=== PATIENT | male | born 1980 | race Two or more races ===

== ENCOUNTER 2018-06-30 15:22 | Inpatient (IN) | payer OTHER ==
[2018-06-30 18:42] VITALS: BMI 29.7
--- NOTE | 2018-06-30 21:05 | HP ---
COWS - Scale Resting Pulse: 4= [place] > 121 Sweatin=Flushed/Facial Moisture Restless Observation: 1= Difficult to Sit Still Pupil Size: 1= Pupils >than Normal Bone or Joint Aches: 2= Severe Diffuse Aches Runny Nose/ Eye Tearin= Runny Nose/Eyes GI Upset > 30mins: 2= Nausea/Diarrhea Tremor Observation: 2= Slight Tremor Visible Yawning Observation: 0= None Anxiety or Irritability: 1=Feels Anxious/Irritable Goose Flesh Skin: 0=Smooth Skin COWS Score: 17 CIWA Score - CIWA Score Nausea/Vomitin Muscle Tremors: 3 Anxiety: 2 Agitation: 2 Paroxysmal Sweats: 3 Orientation: 0-Oriented Tacttile Disturbances: 2-Mild Itch/Numbness/Burn Auditory Disturbances: 2-Mild Harshness/Frighten Visual Disturbances: 2-Mild Sensitivity Headache: 2-Mild CIWA-Ar Total Score: 20 Admission ROS BHS - HPI Chief Complaint: DEPENDENT ON HEROIN, ETOH AND COCAINE Allergies/Adverse Reactions: Allergies Allergy/AdvReac Type Severity Reaction Status Date / Time No Known Allergies Allergy Verified 06/30/18 19:16 History of Present Illness: THE PT. IS REQUESTING ADMISSION TO THE DETOX UNIT AND CAME FOR H AND PE Exam Limitations: No Limitations - Ebola screening Have you traveled outside of the country in the last 21 days: No (N) Have you had contact with anyone from an Ebola affected area: No Have you been sick,other than usual withdrawal symptoms: No Do you have a fever: No - Review of Systems Constitutional: See HPI, Malaise, Weakness EENT: reports: See HPI Respiratory: reports: See HPI Cardiac: reports: See HPI, Syncope GI: reports: See HPI, Diarrhea, Nausea, Poor Appetite, Vomiting, Abdominal cramping : reports: See HPI Musculoskeletal: reports: See HPI, Muscle Pain, Muscle Weakness Integumentary: reports: See HPI, Sweating Neuro: reports: See HPI, Headache, Tremors, Weakness Endocrine: reports: See HPI Hematology: reports: See HPI Psychiatric: reports: Judgement Intact, Orientated x3, Anxious, Depressed Patient History - Patient Medical History Hx Asthma: No Hx Cardiac Disorders: No Hx Diabetes: No Hx Gastrointestinal Disorders: No Hx Sexually Transmitted Disorders: No Hx Renal Disease (ESRD): No Hx Human Immunodeficiency Virus (HIV): No Hx Hepatitis C: No Hx Depression: Yes (ANXIETY) - Patient Surgical History Past Surgical History: No - PPD History Previous Implant?: No - Smoking Cessation Smoking history: Current every day smoker Have you smoked in the past 12 months: Yes Aproximately how many cigarettes per day: 20 Hx Chewing Tobacco Use: No Initiated information on smoking cessation: Yes 'Breaking Loose' booklet given: 06/30/18 - Substance & Tx. History Hx Alcohol Use: Yes Hx Substance Use: Yes Substance Use Type: Alcohol, Cocaine, Heroin Hx Substance Use Treatment: Yes - Substances Abused Alcohol Route: Oral Frequency: Daily Amount used: 1 PINT Age of first use: 17 Date of Last Use: 06/30/18 Cocaine Route: Smoking Frequency: Daily Amount used: 10 BAGS Age of first use: 21 Date of Last Use: 06/30/18 Heroin Route: Injection Frequency: Daily Amount used: 10 BAGS Age of first use: 21 Date of Last Use: 06/30/18 Family Disease History - Family Disease History Family History: Denies Admission Physical Exam [facility] - Vital Signs Vital Signs: Vital Signs - 24 hr 06/30/18 18:39 Temperature 98.9 F Pulse Rate 129 H Respiratory 20 Rate Blood Pressure 132/77 - Physical General Appearance: Yes: No Apparent Distress, Nourished, Appropriately Dressed , Tremorous, Sweating, Anxious HEENTM: Yes: Hearing grossly Normal, Normocephalic, Normal Voice, MATY Respiratory: Yes: Chest Non-Tender, Lungs Clear, Normal Breath Sounds, No Respiratory Distress, No Accessory Muscle Use Neck: Yes: No masses,lesions,Nodules, Supple, Trachea in good position Breast: Yes: Breast Exam Deferred, Axillae without masses Cardiology: Yes: Regular Rhythm, S1, S2, Tachycardia Abdominal: Yes: Normal Bowel Sounds, Non Tender, Soft, Protuberent Back: Yes: Normal Inspection Musculoskeletal: Yes: full range of Motion, Gait Steady, Pelvis Stable, Muscle Pain, Muscle weakness Extremities: Yes: Normal Capillary Refill, Normal Range of Motion, Non-Tender, Tremors Neurological: Yes: 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 intact, Fully Oriented, Alert, Motor Strength 5/5, Normal Response, Depressed Affect Integumentary: Yes: Warm, Moist, Track Rodriguez Lymphatic: Yes: Within Normal Limits - Diagnostic (1) Heroin dependence Current Visit: Yes Status: Chronic (2) EtOH dependence Current Visit: Yes Status: Chronic Qualifiers: Substance use status: uncomplicated Qualified Code(s): F10.20 - Alcohol dependence, uncomplicated (3) Cocaine dependence Current Visit: Yes Status: Chronic Qualifiers: Substance use status: uncomplicated Qualified Code(s): F14.20 - Cocaine dependence, uncomplicated (4) Anxiety and depression Current Visit: Yes Status: Chronic (5) Nicotine dependence Current Visit: Yes Status: Chronic Qualifiers: Nicotine product type: cigarettes Cleared for Admission [facility] - Detox or Rehab [facility] Level of Care: Medically Managed Detox Regimen/Protocol: Methadone/Valium [facility] Breath Alcohol Content Breath Alcohol Content: 0 Urine Drug Screen - Results Drug Screen Negative: No Urine Drug Screen Results: ZION-Cocaine, OPI-Opiates, BZO-Benzodiazepines, MTD- Methadone, FEN-Fentanyl
[2018-06-30] MEDS ORDERED: MAGNESIUM HYDROX 2400MG/30ML ORAL SUSPENSION 30 ML CUP PO PRN (21:11)
[2018-06-30] MEDS ORDERED: ACETAMINOPHEN 325 MG TABLET (FP) PO PRN (21:11)
[2018-06-30] MEDS ORDERED: diazePAM 5 MG TABLET PO ONE (21:11)
[2018-06-30] MEDS ORDERED: LOPERAMIDE HCL 2 MG CAPSULE PO PRN (21:11)
[2018-06-30] MEDS ORDERED: MAGNESIUM CITRATE 300 ML BOTTLE PO PRN (21:11)
[2018-06-30] MEDS ORDERED: MENTHOL/PHENOL 1 EACH UD MM PRN (21:11)
[2018-06-30] MEDS ORDERED: IBUPROFEN 400 MG TABLET (FP) PO PRN (21:11)
[2018-06-30] MEDS ORDERED: P-EPHED 60MG/TRIPROLIDI 2.5MG TABLET PO PRN (21:11)
[2018-06-30] MEDS ORDERED: MAG HYDROX/AL HYDROX/SIMETH 30 ML UNIT-DOSE CUP PO PRN (21:11)
[2018-06-30] MEDS ORDERED: guaiFENesin/D-METHORPHAN HB 10 ML UNIT-DOSE CUPS PO PRN (21:11)
[2018-06-30] MEDS ORDERED: METHADONE HCL 10 MG TABLET (FOR DETOX USE ONLY) PO ONE ×2 (21:45→23:00)
[2018-06-30] MEDS ORDERED: MELATONIN 5 MG TABLETS PO PRN (22:00)
[2018-06-30] MEDS: THIAMINE HCL 100 MG TABLET (FP) PO SCH (22:11)
[2018-06-30] MEDS: diazePAM 5 MG TABLET PO SCH (22:12)
[2018-06-30] MEDS: NICOTINE POLACRILEX 4 MG GUM BC PRN (22:26)
[2018-07-01 02:04] LABS: URINE APPEARANCE TURBID; URINE BILIRUBIN NEGATIVE (<2.0 mg/dL); URINE COLOR YELLOW; URINE GLUCOSE (UA) NEGATIVE (NEGATIVE); URINE KETONE NEGATIVE (NEGATIVE); URINE LEUK ESTERASE NEGATIVE (NEGATIVE); URINE NITRITE NEGATIVE (NEGATIVE); URINE PROTEIN NEGATIVE (NEGATIVE); URINE UROBILINOGEN NEGATIVE mg/dL (0.2-1.0)
[2018-07-01] MEDS: diazePAM 5 MG TABLET PO SCH ×3 (06:02→22:11)
[2018-07-01] MEDS ORDERED: METHADONE HCL 10 MG TABLET (FOR DETOX USE ONLY) PO SCH (10:00)
[2018-07-01] MEDS: NICOTINE POLACRILEX 4 MG GUM BC PRN ×4 (10:11→20:12)
[2018-07-01] MEDS: NICOTINE 21 MG/24 HOURS TOPICAL PATCH TD SCH (10:11)
[2018-07-01] MEDS: PRENATAL VITAMINS W/ FOLIC ACID TABLET (FP) PO SCH (10:11)
[2018-07-01 10:39] LABS: HEMATOCRIT 39.7 % (35.4-49); HEMOGLOBIN 13.1 GM/dL (11.7-16.9); MCH 26.2 pg (25.7-33.7); MEAN CELL VOLUME 79.2 fl (80-96); MEAN PLT VOLUME 9.5 fl (7.5-11.1); PLATELET COUNT 297 K/MM3 (134-434); RBC 5.02 M/mm3 (4.00-5.60); WHITE BLOOD COUNT 9.3 K/mm3 (4.0-10.0)
[2018-07-01 10:52] LABS: CHLORIDE 106 mmol/L (98-107); POTASSIUM 3.8 mmol/L (3.5-5.1); SODIUM 144 mmol/L (136-145)
[2018-07-01 10:56] LABS: ALBUMIN 3.6 g/dl (3.4-5.0); ALK PHOS 109 U/L (45-117); ANION GAP 11 MMOL/L (8-16); BILIRUBIN,TOTAL 0.6 mg/dL (0.2-1.0); BLOOD UREA NITROGEN 19 mg/dL (7-18); CALCIUM 8.9 mg/dL (8.5-10.1); CO2 27 mmol/L (21-32); GLUCOSE,RANDOM 95 mg/dL (74-106); SGOT/AST 46 U/L (15-37); SGPT/ALT 41 U/L (13-61)
--- NOTE | 2018-07-01 11:48 | CONSULT ---
[facility] Psychiatric Consult - Data Date of interview: 07/01/18 Admission source: Self-referred Identifying data: 38 y/o male single, unemployed, homeless, father of 2 and no source of income Substance Abuse History: This is ihis first detox in patient adnission due to heroin, EYOH and cocaine abuse. He has been using drugs since age 22 on and off. He feels stressed tired and fatigued using 10 bags of cocaine and shooting heroin daily. patient was marginally cooperative he appears sedated. Please refer to addiction counselor summay for more detailed drug history Medical History: Denies past acute medical or surgical illnesses Psychiatric History: Denies psychiatric history. Feels depressed over his current situation, denies psychosis, denies mood swings, denies anxiety, denies suicidal or homicidal ideation Physical/Sexual Abuse/Trauma History: unable to ascertain, patient was uncooperative Mental Status Exam - Mental Status Exam Cognitive Function: Fair Patient Appearance: Unkempt Mood: Hostile Affect: Constricted Patient Behavior: Guarded Speech Pattern: Slurred Voice Loudness: Mildly Loud Thought Process: Circumstantial Thought Disorder: Being Controlled Hallucinations: Denies Suicidal Ideation: Denies Homicidal Ideation: Denies Insight/Judgement: Poor Sleep: Poorly Appetite: Fair Muscle strength/Tone: Normal Gait/Station: Normal Psychiatric Findings - Problem List ([place] 1, 2,3) (1) Cocaine dependence Current Visit: Yes Status: Chronic Qualifiers: Substance use status: uncomplicated Qualified Code(s): F14.20 - Cocaine dependence, uncomplicated (2) EtOH dependence Current Visit: Yes Status: Chronic Qualifiers: Substance use status: uncomplicated Qualified Code(s): F10.20 - Alcohol dependence, uncomplicated (3) Heroin dependence Current Visit: Yes Status: Chronic (4) Nicotine dependence Current Visit: Yes Status: Chronic Qualifiers: Nicotine product type: cigarettes - Initial Treatment Plan Initial Treatment Plan: Continue detocx treatment. Observation. Monitor response
[2018-07-01] MEDS: diazePAM 5 MG TABLET PO PRN (12:12)
--- NOTE | 2018-07-01 16:33 | PN ---
S CIWA - CIWA Score Nausea/Vomitin-Mild Nausea/No Vomiting Muscle Tremors: 4-Moderate,w/Arms Extend Anxiety: 3 Agitation: 3 Paroxysmal Sweats: 4-Forehead w/Sweat Beads Orientation: 0-Oriented Tacttile Disturbances: 1-Very Mild Itch/Numbness Auditory Disturbances: 0-None Visual Disturbances: 0-None Headache: 0-None Present CIWA-Ar Total Score: 16 BHS COWS - Scale Resting Pulse: 0= [place] 80 or Below Sweatin= Chills/Flushing Restless Observation: 1= Difficult to Sit Still Pupil Size: 0= Normal to Room Light Bone or Joint Aches: 1= Mild Discomfort Runny Nose/ Eye Tearin= Nasal Congestion GI Upset > 30mins: 2= Nausea/Diarrhea Tremor Observation of Outstretched Hands: 2= Slight Tremor Visible Yawning Observation: 2= >3x During Session Anxiety or Irritability: 2=Irritable/Anxious Goose Flesh Skin: 0=Smooth Skin COWS Score: 12 S Progress Note (SOAP) Subjective: body ache joints pain muscle cramping sweat tremor Objective: 07/01/18 16:33 Vital Signs Temperature 98.2 F 07/01/18 13:54 Pulse Rate 87 07/01/18 13:54 Respiratory Rate 18 07/01/18 13:54 Blood Pressure 126/64 07/01/18 13:54 O2 Sat by Pulse Oximetry (%) Laboratory Last Values WBC 9.3 K/mm3 (4.0-10.0) 07/01/18 07:25 RBC 5.02 M/mm3 (4.00-5.60) 07/01/18 07:25 Hgb 13.1 GM/dL (11.7-16.9) 07/01/18 07:25 Hct 39.7 % (35.4-49) 07/01/18 07:25 MCV 79.2 fl (80-96) L 07/01/18 07:25 MCH 26.2 pg (25.7-33.7) 07/01/18 07:25 MCHC 33.0 g/dl (32.0-35.9) 07/01/18 07:25 RDW 14.0 % (11.9-15.9) 07/01/18 07:25 Plt Count 297 K/MM3 (134-434) 07/01/18 07:25 MPV 9.5 fl (7.5-11.1) 07/01/18 07:25 Sodium 144 mmol/L (136-145) 07/01/18 07:25 Potassium 3.8 mmol/L (3.5-5.1) 07/01/18 07:25 Chloride 106 mmol/L (98-107) 07/01/18 07:25 Carbon Dioxide 27 mmol/L (21-32) 07/01/18 07:25 Anion Gap 11 MMOL/L (8-16) 07/01/18 07:25 BUN 19 mg/dL (7-18) H 07/01/18 07:25 Creatinine 1.0 mg/dL (0.55-1.3) 07/01/18 07:25 Creat Clearance w eGFR > 60 (>60) 07/01/18 07:25 Random Glucose 95 mg/dL (74-106) 07/01/18 07:25 Calcium 8.9 mg/dL (8.5-10.1) 07/01/18 07:25 Total Bilirubin 0.6 mg/dL (0.2-1.0) 07/01/18 07:25 AST 46 U/L (15-37) H 07/01/18 07:25 ALT 41 U/L (13-61) 07/01/18 07:25 Alkaline Phosphatase 109 U/L (45-117) 07/01/18 07:25 Total Protein 7.0 g/dl (6.4-8.2) 07/01/18 07:25 Albumin 3.6 g/dl (3.4-5.0) 07/01/18 07:25 Urine Color Yellow 06/30/18 22:06 Urine Appearance Turbid 06/30/18 22:06 Urine pH 5.0 (5.0-8.0) 06/30/18 22:06 Ur Specific [place] 1.030 (1.001-1.035) 06/30/18 22:06 Urine Protein Negative (NEGATIVE) 06/30/18 22:06 Urine Glucose (UA) Negative (NEGATIVE) 06/30/18 22:06 Urine Ketones Negative (NEGATIVE) 06/30/18 22:06 Urine Blood Negative (NEGATIVE) 06/30/18 22:06 Urine Nitrite Negative (NEGATIVE) 06/30/18 22:06 Urine Bilirubin Negative (<2.0 mg/dL) 06/30/18 22:06 Urine Urobilinogen Negative mg/dL (0.2-1.0) 06/30/18 22:06 Ur Leukocyte Esterase Negative (NEGATIVE) 06/30/18 22:06 RPR Titer Nonreactive (NONREACTIVE) 07/01/18 07:25 HIV 1&2 Antibody Screen Negative 07/01/18 07:25 HIV P24 Antigen Negative 07/01/18 07:25 lab noted Assessment: 07/01/18 16:33 withdrawal sx Plan: continue detox
[2018-07-01] MEDS: THIAMINE HCL 100 MG TABLET (FP) PO SCH (22:11)
--- NOTE | 2018-07-01 22:28 | EKG ---
Test Reason : Blood Pressure : / mmHG Vent. Rate : 082 BPM Atrial Rate : 082 BPM P-R Int : 140 ms QRS Dur : 080 ms QT Int : 408 ms P-R-T Axes : 040 034 041 degrees QTc Int : 476 ms NORMAL SINUS RHYTHM NORMAL ECG NO PREVIOUS ECGS AVAILABLE Confirmed by FLORINA CEBALLOS MD ([id number]) on 07/01/2018 10:28:20 PM Referred By: Confirmed By:FLORINA CEBALLOS MD
[2018-07-02] MEDS: PRENATAL VITAMINS W/ FOLIC ACID TABLET (FP) PO SCH (10:26)
[2018-07-02] MEDS: NICOTINE 21 MG/24 HOURS TOPICAL PATCH TD SCH (10:26)
[2018-07-02] MEDS: METHADONE HCL 5 MG TABLET (FOR DETOX USE ONLY) PO SCH (10:26)
[2018-07-02] MEDS: NICOTINE POLACRILEX 4 MG GUM BC PRN ×5 (10:27→22:17)
[2018-07-02] MEDS: diazePAM 5 MG TABLET PO SCH ×2 (10:29→22:15)
[2018-07-02] MEDS: diazePAM 5 MG TABLET PO PRN (12:16)
--- NOTE | 2018-07-02 17:19 | PN ---
[facility] CIWA - CIWA Score Nausea/Vomitin-Mild Nausea/No Vomiting Muscle Tremors: 4-Moderate,w/Arms Extend Anxiety: 4-Mod. Anxious/Guarded Agitation: 2 Paroxysmal Sweats: 1-Minimal Palms Moist Orientation: 0-Oriented Tacttile Disturbances: 0-None Auditory Disturbances: 0-None Visual Disturbances: 0-None Headache: 0-None Present CIWA-Ar Total Score: 12 BHS COWS - Scale Resting Pulse: 0= [place] 80 or Below Sweatin= Chills/Flushing Restless Observation: 1= Difficult to Sit Still Pupil Size: 0= Normal to Room Light Bone or Joint Aches: 2= Severe Diffuse Aches Runny Nose/ Eye Tearin= Nasal Congestion GI Upset > 30mins: 2= Nausea/Diarrhea Tremor Observation of Outstretched Hands: 2= Slight Tremor Visible Yawning Observation: 1= 1-2x During Session Anxiety or Irritability: 2=Irritable/Anxious Goose Flesh Skin: 0=Smooth Skin COWS Score: 12 S Progress Note (SOAP) Subjective: body ache muscle cramp sweat tremor trouble sleep at night Objective: 07/02/18 17:19 Vital Signs Temperature 98.4 F 07/02/18 13:07 Pulse Rate 82 07/02/18 13:07 Respiratory Rate 20 07/02/18 13:07 Blood Pressure 129/89 07/02/18 13:07 O2 Sat by Pulse Oximetry (%) Laboratory Last Values WBC 9.3 K/mm3 (4.0-10.0) 07/01/18 07:25 RBC 5.02 M/mm3 (4.00-5.60) 07/01/18 07:25 Hgb 13.1 GM/dL (11.7-16.9) 07/01/18 07:25 Hct 39.7 % (35.4-49) 07/01/18 07:25 MCV 79.2 fl (80-96) L 07/01/18 07:25 MCH 26.2 pg (25.7-33.7) 07/01/18 07:25 MCHC 33.0 g/dl (32.0-35.9) 07/01/18 07:25 RDW 14.0 % (11.9-15.9) 07/01/18 07:25 Plt Count 297 K/MM3 (134-434) 07/01/18 07:25 MPV 9.5 fl (7.5-11.1) 07/01/18 07:25 Sodium 144 mmol/L (136-145) 07/01/18 07:25 Potassium 3.8 mmol/L (3.5-5.1) 07/01/18 07:25 Chloride 106 mmol/L (98-107) 07/01/18 07:25 Carbon Dioxide 27 mmol/L (21-32) 07/01/18 07:25 Anion Gap 11 MMOL/L (8-16) 07/01/18 07:25 BUN 19 mg/dL (7-18) H 07/01/18 07:25 Creatinine 1.0 mg/dL (0.55-1.3) 07/01/18 07:25 Creat Clearance w eGFR > 60 (>60) 07/01/18 07:25 Random Glucose 95 mg/dL (74-106) 07/01/18 07:25 Calcium 8.9 mg/dL (8.5-10.1) 07/01/18 07:25 Total Bilirubin 0.6 mg/dL (0.2-1.0) 07/01/18 07:25 AST 46 U/L (15-37) H 07/01/18 07:25 ALT 41 U/L (13-61) 07/01/18 07:25 Alkaline Phosphatase 109 U/L (45-117) 07/01/18 07:25 Total Protein 7.0 g/dl (6.4-8.2) 07/01/18 07:25 Albumin 3.6 g/dl (3.4-5.0) 07/01/18 07:25 Urine Color Yellow 06/30/18 22:06 Urine Appearance Turbid 06/30/18 22:06 Urine pH 5.0 (5.0-8.0) 06/30/18 22:06 Ur Specific [place] 1.030 (1.001-1.035) 06/30/18 22:06 Urine Protein Negative (NEGATIVE) 06/30/18 22:06 Urine Glucose (UA) Negative (NEGATIVE) 06/30/18 22:06 Urine Ketones Negative (NEGATIVE) 06/30/18 22:06 Urine Blood Negative (NEGATIVE) 09/15/18 22:06 Urine Nitrite Negative (NEGATIVE) 06/30/18 22:06 Urine Bilirubin Negative (<2.0 mg/dL) 06/30/18 22:06 Urine Urobilinogen Negative mg/dL (0.2-1.0) 06/30/18 22:06 Ur Leukocyte Esterase Negative (NEGATIVE) 06/30/18 22:06 RPR Titer Nonreactive (NONREACTIVE) 07/01/18 07:25 HIV 1&2 Antibody Screen Negative 07/01/18 07:25 HIV P24 Antigen Negative 07/01/18 07:25 lab noted Assessment: 07/02/18 17:20 withdrawal sx Plan: continue detox
[2018-07-02] MEDS: THIAMINE HCL 100 MG TABLET (FP) PO SCH (22:15)
[2018-07-03] MEDS: NICOTINE POLACRILEX 4 MG GUM BC PRN ×5 (10:00→22:13)
[2018-07-03] MEDS: diazePAM 5 MG TABLET PO SCH ×2 (11:01→22:13)
[2018-07-03] MEDS: METHADONE HCL 5 MG TABLET (FOR DETOX USE ONLY) PO SCH (11:01)
[2018-07-03] MEDS: PRENATAL VITAMINS W/ FOLIC ACID TABLET (FP) PO SCH ×2 (11:01→11:13)
[2018-07-03] MEDS: NICOTINE 21 MG/24 HOURS TOPICAL PATCH TD SCH (11:12)
--- NOTE | 2018-07-03 16:22 | PN ---
BHS Progress Note (SOAP) Subjective: joint pain anxiety tremor body aches restlessness sweating Objective: 07/03/18 16:21 Vital Signs Temperature 97.3 F L 07/03/18 13:57 Pulse Rate 85 07/03/18 13:57 Respiratory Rate 18 07/03/18 13:57 Blood Pressure 117/82 07/03/18 13:57 O2 Sat by Pulse Oximetry (%) Laboratory Last Values WBC 9.3 K/mm3 (4.0-10.0) 07/01/18 07:25 RBC 5.02 M/mm3 (4.00-5.60) 07/01/18 07:25 Hgb 13.1 GM/dL (11.7-16.9) 07/01/18 07:25 Hct 39.7 % (35.4-49) 07/01/18 07:25 MCV 79.2 fl (80-96) L 07/01/18 07:25 MCH 26.2 pg (25.7-33.7) 07/01/18 07:25 MCHC 33.0 g/dl (32.0-35.9) 07/01/18 07:25 RDW 14.0 % (11.9-15.9) 07/01/18 07:25 Plt Count 297 K/MM3 (134-434) 07/01/18 07:25 MPV 9.5 fl (7.5-11.1) 07/01/18 07:25 Sodium 144 mmol/L (136-145) 07/01/18 07:25 Potassium 3.8 mmol/L (3.5-5.1) 07/01/18 07:25 Chloride 106 mmol/L (98-107) 07/01/18 07:25 Carbon Dioxide 27 mmol/L (21-32) 07/01/18 07:25 Anion Gap 11 MMOL/L (8-16) 07/01/18 07:25 BUN 19 mg/dL (7-18) H 07/01/18 07:25 Creatinine 1.0 mg/dL (0.55-1.3) 07/01/18 07:25 Creat Clearance w eGFR > 60 (>60) 07/01/18 07:25 Random Glucose 95 mg/dL (74-106) 07/01/18 07:25 Calcium 8.9 mg/dL (8.5-10.1) 07/01/18 07:25 Total Bilirubin 0.6 mg/dL (0.2-1.0) 07/01/18 07:25 AST 46 U/L (15-37) H 07/01/18 07:25 ALT 41 U/L (13-61) 07/01/18 07:25 Alkaline Phosphatase 109 U/L (45-117) 07/01/18 07:25 Total Protein 7.0 g/dl (6.4-8.2) 07/01/18 07:25 Albumin 3.6 g/dl (3.4-5.0) 07/01/18 07:25 Urine Color Yellow 06/30/18 22:06 Urine Appearance Turbid 06/30/18 22:06 Urine pH 5.0 (5.0-8.0) 06/30/18 22:06 Ur Specific [place] 1.030 (1.001-1.035) 06/30/18 22:06 Urine Protein Negative (NEGATIVE) 06/30/18 22:06 Urine Glucose (UA) Negative (NEGATIVE) 06/30/18 22:06 Urine Ketones Negative (NEGATIVE) 06/30/18 22:06 Urine Blood Negative (NEGATIVE) 06/30/18 22:06 Urine Nitrite Negative (NEGATIVE) 06/30/18 22:06 Urine Bilirubin Negative (<2.0 mg/dL) 06/30/18 22:06 Urine Urobilinogen Negative mg/dL (0.2-1.0) 06/30/18 22:06 Ur Leukocyte Esterase Negative (NEGATIVE) 06/30/18 22:06 RPR Titer Nonreactive (NONREACTIVE) 07/01/18 07:25 HIV 1&2 Antibody Screen Negative 07/01/18 07:25 HIV P24 Antigen Negative 07/01/18 07:25 lab noted Assessment: 07/03/18 16:22 withdrawal sx Plan: continue detox
[2018-07-03] MEDS: THIAMINE HCL 100 MG TABLET (FP) PO SCH (22:13)
[2018-07-04] MEDS: NICOTINE POLACRILEX 4 MG GUM BC PRN ×7 (00:47→23:03)
[2018-07-04] MEDS: NICOTINE 21 MG/24 HOURS TOPICAL PATCH TD SCH (09:49)
[2018-07-04] MEDS: PRENATAL VITAMINS W/ FOLIC ACID TABLET (FP) PO SCH (09:49)
[2018-07-04] MEDS ORDERED: METHADONE HCL 10 MG TABLET (FOR DETOX USE ONLY) PO SCH (10:00)
[2018-07-04] MEDS ORDERED: diazePAM 5 MG TABLET PO SCH (10:00)
--- NOTE | 2018-07-04 14:32 | PN ---
BHS Progress Note (SOAP) Subjective: Still c/o nausea and shakes. Denies vomiting. Objective: A&O x 3. Abd S/NT/BS+. Mild tremors of hands felt. Vital Signs 07/04/18 07/04/18 09:49 14:14 Temperature 97.7 F 98.4 F Pulse Rate 62 97 H Respiratory 20 18 Rate Blood Pressure 122/84 100/60 Lab Results WBC 9.3 K/mm3 (4.0-10.0) 07/01/18 07:25 RBC 5.02 M/mm3 (4.00-5.60) 07/01/18 07:25 Hgb 13.1 GM/dL (11.7-16.9) 07/01/18 07:25 Hct 39.7 % (35.4-49) 07/01/18 07:25 MCV 79.2 fl (80-96) L 07/01/18 07:25 MCHC 33.0 g/dl (32.0-35.9) 07/01/18 07:25 RDW 14.0 % (11.9-15.9) 07/01/18 07:25 Plt Count 297 K/MM3 (134-434) 07/01/18 07:25 Sodium 144 mmol/L (136-145) 07/01/18 07:25 Potassium 3.8 mmol/L (3.5-5.1) 07/01/18 07:25 Chloride 106 mmol/L (98-107) 07/01/18 07:25 Carbon Dioxide 27 mmol/L (21-32) 07/01/18 07:25 Anion Gap 11 MMOL/L (8-16) 07/01/18 07:25 BUN 19 mg/dL (7-18) H 07/01/18 07:25 Creatinine 1.0 mg/dL (0.55-1.3) 07/01/18 07:25 Random Glucose 95 mg/dL (74-106) 07/01/18 07:25 Calcium 8.9 mg/dL (8.5-10.1) 07/01/18 07:25 Labs reviewed. Assessment: Continued withdrawal symptoms. Plan: Continue detox Encouraged 2 pitchers water daily.
[2018-07-04] MEDS: THIAMINE HCL 100 MG TABLET (FP) PO SCH (21:03)
[2018-07-05] MEDS ORDERED: METHADONE HCL 5 MG TABLET (FOR DETOX USE ONLY) PO SCH (06:00)
--- NOTE | 2018-07-05 08:32 | PN ---
BHS Progress Note (SOAP) Subjective: reported feeling withdrawal from opiate and alcohol restlessness sweat poor sleep Objective: 07/05/18 16:57 Vital Signs Temperature 97.0 F L 07/05/18 13:44 Pulse Rate 70 07/05/18 13:44 Respiratory Rate 18 07/05/18 13:44 Blood Pressure 110/50 07/05/18 13:44 O2 Sat by Pulse Oximetry (%) Laboratory Last Values WBC 9.3 K/mm3 (4.0-10.0) 07/01/18 07:25 RBC 5.02 M/mm3 (4.00-5.60) 07/01/18 07:25 Hgb 13.1 GM/dL (11.7-16.9) 07/01/18 07:25 Hct 39.7 % (35.4-49) 07/01/18 07:25 MCV 79.2 fl (80-96) L 07/01/18 07:25 MCH 26.2 pg (25.7-33.7) 07/01/18 07:25 MCHC 33.0 g/dl (32.0-35.9) 07/01/18 07:25 RDW 14.0 % (11.9-15.9) 07/01/18 07:25 Plt Count 297 K/MM3 (134-434) 07/01/18 07:25 MPV 9.5 fl (7.5-11.1) 07/01/18 07:25 Sodium 144 mmol/L (136-145) 07/01/18 07:25 Potassium 3.8 mmol/L (3.5-5.1) 07/01/18 07:25 Chloride 106 mmol/L (98-107) 07/01/18 07:25 Carbon Dioxide 27 mmol/L (21-32) 07/01/18 07:25 Anion Gap 11 MMOL/L (8-16) 07/01/18 07:25 BUN 19 mg/dL (7-18) H 07/01/18 07:25 Creatinine 1.0 mg/dL (0.55-1.3) 07/01/18 07:25 Creat Clearance w eGFR > 60 (>60) 07/01/18 07:25 Random Glucose 95 mg/dL (74-106) 07/01/18 07:25 Calcium 8.9 mg/dL (8.5-10.1) 07/01/18 07:25 Total Bilirubin 0.6 mg/dL (0.2-1.0) 07/01/18 07:25 AST 46 U/L (15-37) H 07/01/18 07:25 ALT 41 U/L (13-61) 07/01/18 07:25 Alkaline Phosphatase 109 U/L (45-117) 07/01/18 07:25 Total Protein 7.0 g/dl (6.4-8.2) 07/01/18 07:25 Albumin 3.6 g/dl (3.4-5.0) 07/01/18 07:25 Urine Color Yellow 06/30/18 22:06 Urine Appearance Turbid 06/30/18 22:06 Urine pH 5.0 (5.0-8.0) 06/30/18 22:06 Ur Specific [place] 1.030 (1.001-1.035) 06/30/18 22:06 Urine Protein Negative (NEGATIVE) 06/30/18 22:06 Urine Glucose (UA) Negative (NEGATIVE) 06/30/18 22:06 Urine Ketones Negative (NEGATIVE) 06/30/18 22:06 Urine Blood Negative (NEGATIVE) 06/30/18 22:06 Urine Nitrite Negative (NEGATIVE) 06/30/18 22:06 Urine Bilirubin Negative (<2.0 mg/dL) 06/30/18 22:06 Urine Urobilinogen Negative mg/dL (0.2-1.0) 06/30/18 22:06 Ur Leukocyte Esterase Negative (NEGATIVE) 06/30/18 22:06 RPR Titer Nonreactive (NONREACTIVE) 07/01/18 07:25 HIV 1&2 Antibody Screen Negative 07/01/18 07:25 HIV P24 Antigen Negative 07/01/18 07:25 lab noted Assessment: 07/05/18 16:57 mild withdrawal sx Plan: medically supervised detox
[2018-07-05] MEDS: NICOTINE POLACRILEX 4 MG GUM BC PRN ×4 (08:33→16:51)
[2018-07-05] MEDS: PRENATAL VITAMINS W/ FOLIC ACID TABLET (FP) PO SCH (11:15)
[2018-07-05] MEDS: NICOTINE 21 MG/24 HOURS TOPICAL PATCH TD SCH (11:15)
[2018-07-05] MEDS: hydrOXYzine PAMOATE 25 MG CAPSULE (FP) PO PRN (17:48)
[2018-07-05] MEDS: THIAMINE HCL 100 MG TABLET (FP) PO SCH (22:36)
[2018-07-06 06:45] VITALS: BP 120/81; PULSE 70; TEMP 97.5
[2018-07-06] MEDS: NICOTINE POLACRILEX 4 MG GUM BC PRN (08:48)
[2018-07-06] MEDS: hydrOXYzine PAMOATE 25 MG CAPSULE (FP) PO PRN (09:32)
[2018-07-06] MEDS: NICOTINE 21 MG/24 HOURS TOPICAL PATCH TD SCH (09:32)
[2018-07-06] MEDS: PRENATAL VITAMINS W/ FOLIC ACID TABLET (FP) PO SCH (09:32)
--- NOTE | 2018-07-06 13:17 | DS ---
[facility] Detox Discharge Summary Admission Date: 06/30/18 Discharge Date: 07/06/18 - History Present History: Alcohol Dependence, Opioid Dependence - Physical Exam Results Vital Signs: Vital Signs Temperature 97.5 F L 07/06/18 06:45 Pulse Rate 70 07/06/18 06:45 Respiratory Rate 18 07/06/18 06:45 Blood Pressure 120/81 07/06/18 06:45 O2 Sat by Pulse Oximetry (%) Pertinent Admission Physical Exam Findings: PATIENT MEDICALLY STABLE. ALERT AND ORIENTED X 3. IN NAD. AMBULATING AD GOLDY. FOR DISCHARGE TODAY. OUTPATIENT TREATMENT WITH [facility]- PER PATIENT INTAKE TO BE DONE TODAY. PATIENT DENIES SI/HI. DISCHARGE INSTRUCTIONS PROVIDED BY STAFF. - Treatment Hospital Course: Detox Protocol Followed, Detoxed Safely, Responded well, Discharged Condition Good - Medication Discharge Medications: Ambulatory Orders NK [No Known Home Medication] 06/30/18 - AMA Did Patient Leave Against Medical Advice: No
== END 2018-07-06 10:02 | disposition home or self-care (01) | DRG 773 ==
LOC: YASAS 15:22 → Y6N 20:04
PROC: HZ2ZZZZ Detoxification Services for Substance Abuse Treatment (ICD-10-PCS; principal; 2018-06-30)
DX: F11.23 Opioid dependence with withdrawal (principal); F10.230 Alcohol dependence with withdrawal, uncomplicated; F14.20 Cocaine dependence, uncomplicated; F17.210 Nicotine dependence, cigarettes, uncomplicated; F41.8 Other specified anxiety disorders
CPT/HCPCS: 36415; 80053; 81003; 85027; 86593; 87389; 93005; 93010

== ENCOUNTER 2023-04-06 23:14 | Inpatient (IN) | payer OTHER ==
[2023-04-07 00:04] VITALS: BMI 26.3
[2023-04-07] MEDS ORDERED: BENZONATATE 200 MG CAPSULE PO PRN (09:25)
[2023-04-07] MEDS ORDERED: IBUPROFEN 600 MG TABLET (FP) PO PRN (09:25)
[2023-04-07] MEDS ORDERED: BENZOCAINE/MENTHOL (CHLORASEPTIC ) LOZENGE MM PRN (09:25)
[2023-04-07] MEDS ORDERED: DICYCLOMINE HCL 10 MG CAPSULE PO PRN (09:25)
[2023-04-07] MEDS ORDERED: ONDANSETRON *ODT* 4 MG TABLET SL PRN (09:25)
[2023-04-07] MEDS ORDERED: IBUPROFEN 400 MG TABLET (FP) PO PRN (09:25)
[2023-04-07] MEDS ORDERED: MAGNESIUM HYDROX 2400MG/30ML ORAL SUSPENSION 30 ML CUP PO PRN (09:25)
[2023-04-07] MEDS ORDERED: ACETAMINOPHEN 325 MG TABLET (FP) PO PRN (09:25)
[2023-04-07] MEDS ORDERED: POLYETHYLENE GLYCOL (HEALTHYLAX) 3350 17 GM PACKET PO PRN (09:25)
[2023-04-07] MEDS ORDERED: diazePAM 5 MG TABLET PO PRN (09:25)
[2023-04-07] MEDS ORDERED: NALOXONE HCL 0.4 MG/ML VIAL IM PRN (09:25)
[2023-04-07] MEDS ORDERED: LOPERAMIDE HCL 2 MG CAPSULE PO PRN (09:25)
[2023-04-07] MEDS ORDERED: hydrOXYzine PAMOATE 25 MG CAPSULE (FP) PO PRN (09:25)
[2023-04-07] MEDS ORDERED: MAG HYDROX/AL HYDROX/SIMETH 30 ML UNIT-DOSE CUP PO PRN (09:25)
[2023-04-07] MEDS ORDERED: METHOCARBAMOL 500 MG TABLET PO PRN (09:25)
[2023-04-07] MEDS ORDERED: BISMUTH SUBSALICYLATE 524 MG/30 ML PO PRN (09:25)
[2023-04-07] MEDS ORDERED: guaiFENesin 600 MG TABLET.ER (FP) PO PRN (09:25)
[2023-04-07] MEDS ORDERED: NALOXONE HCL (KLOXXADO) 8 MG SPRAY NS PRN (09:25)
[2023-04-07] MEDS ORDERED: cloNIDine HCL 0.1 MG TABLET PO PRN (09:40)
[2023-04-07] MEDS ORDERED: chlordiazePOXIDE HCL 25 MG CAPSULE PO PRN (09:40)
[2023-04-07] MEDS ORDERED: diazePAM 5 MG TABLET PO ONE (10:00)
[2023-04-07] MEDS ORDERED: methaDONE HCL 10 MG TABLET (FOR DETOX USE ONLY) PO ONE (10:00)
[2023-04-07] MEDS ORDERED: PRENATAL VITAMINS W/ FOLIC ACID TABLET (FP) PO ONE (10:07)
[2023-04-07] MEDS ORDERED: chlordiazePOXIDE HCL 25 MG CAPSULE ONE (10:07)
[2023-04-07] MEDS ORDERED: methaDONE HCL 10 MG TABLET (FOR DETOX USE ONLY) ONE (10:07)
[2023-04-07] MEDS: chlordiazePOXIDE HCL 25 MG CAPSULE PO SCH ×3 (10:23→23:52)
[2023-04-07] MEDS: PRENATAL VITAMINS W/ FOLIC ACID TABLET (FP) PO SCH (10:23)
[2023-04-07] MEDS ORDERED: diazePAM 5 MG TABLET PO SCH (11:00)
[2023-04-07] MEDS: NICOTINE POLACRILEX 4 MG GUM BUC PRN ×2 (11:30→18:18)
[2023-04-07 14:33] LABS: HEMOGLOBIN 12.6 GM/dL (11.7-16.9); MCH 24.2 pg (25.7-33.7); MCHC 31.6 g/dl (32.0-35.9); MEAN CELL VOLUME 76.8 fl (80-96); MEAN PLT VOLUME 9.4 fl (7.5-11.1); PLATELET COUNT 304 10^3/uL (134-434); RBC 5.21 M/mm3 (4.00-5.60); RDW 15.8 % (11.9-15.9); WHITE BLOOD COUNT 9.2 K/mm3 (4.0-10.0)
[2023-04-07 14:41] LABS: POTASSIUM 4.9 mmol/L (3.5-5.1)
[2023-04-07 14:57] LABS: CALCIUM 9.4 mg/dL (8.5-10.1)
[2023-04-07 14:58] LABS: ALBUMIN 3.4 g/dl (3.4-5.0); BLOOD UREA NITROGEN 19.3 mg/dL (7-18)
[2023-04-07 14:59] LABS: CREATININE 1.1 mg/dL (0.55-1.3)
[2023-04-07 15:02] LABS: BILIRUBIN,TOTAL 0.4 mg/dL (0.2-1); TOT PROT 7.1 g/dl (6.4-8.2)
[2023-04-07] MEDS ORDERED: THIAMINE HCL 100 MG TABLET (FP) PO SCH (22:00)
[2023-04-07] MEDS ORDERED: MELATONIN 5 MG TABLETS PO SCH (22:00)
[2023-04-08] MEDS: chlordiazePOXIDE HCL 25 MG CAPSULE PO SCH ×2 (05:50→11:27)
[2023-04-08 06:07] VITALS: TEMP 97.6
[2023-04-08] MEDS: NICOTINE POLACRILEX 4 MG GUM BUC PRN (11:24)
[2023-04-08] MEDS: PRENATAL VITAMINS W/ FOLIC ACID TABLET (FP) PO SCH (11:28)
[2023-04-08 12:30] VITALS: BP 140/94; PULSE 84; RESP 16
[2023-04-09] MEDS ORDERED: chlordiazePOXIDE HCL 25 MG CAPSULE PO SCH (05:00)
[2023-04-09] MEDS ORDERED: diazePAM 5 MG TABLET PO SCH (06:00)
[2023-04-09] MEDS ORDERED: methaDONE HCL 10 MG TABLET (FOR DETOX USE ONLY) PO ONE (10:00)
[2023-04-10] MEDS ORDERED: chlordiazePOXIDE HCL 10 MG CAPSULE PO PRN
[2023-04-10] MEDS ORDERED: chlordiazePOXIDE HCL 10 MG CAPSULE PO SCH (05:00)
[2023-04-10] MEDS ORDERED: diazePAM 5 MG TABLET PO SCH (06:00)
[2023-04-11] MEDS ORDERED: chlordiazePOXIDE HCL 10 MG CAPSULE PO SCH (05:00)
[2023-04-11] MEDS ORDERED: diazePAM 5 MG TABLET PO ONE (06:00)
[2023-04-11] MEDS ORDERED: methaDONE HCL 10 MG TABLET (FOR DETOX USE ONLY) PO ONE (10:00)
[2023-04-12] MEDS ORDERED: chlordiazePOXIDE HCL 10 MG CAPSULE PO ONE (05:00)
== END 2023-04-08 13:22 | disposition left against medical advice (07) | DRG 770 ==
LOC: YASAS 23:14 → Y3N 04-07 09:58
PROVIDERS: ADMIT Allergy & Immunology; ATTEND Surgery
PROC: HZ2ZZZZ Detoxification Services for Substance Abuse Treatment (ICD-10-PCS; principal; 2023-04-07)
DX: F11.23 Opioid dependence with withdrawal (principal); F10.230 Alcohol dependence with withdrawal, uncomplicated; F14.20 Cocaine dependence, uncomplicated; F13.20 Sedative, hypnotic or anxiolytic dependence, uncomplicated; F12.20 Cannabis dependence, uncomplicated; F17.210 Nicotine dependence, cigarettes, uncomplicated
CPT/HCPCS: 36415; 80053; 85027; 86780; 87635